=== PATIENT | female | born 1955 | race African-American/Black ===

== ENCOUNTER → 2017-02-26 | Day surgery (SDC) | payer MEDICARE, MEDICAID ==
[~2017-02-26] MED LIST: ASPI-1159 PO; ATOR-2 PO; CLOP75TA33 PO; DIPH25CA83 PO; DOCU-138 PO; FURO-151 PO; ISOS60TA4 PO; LEVVL SQ; LIDOCAINE HCL 1% 20ML VIAL (Pyxis) INJ ONE; LORA10TA7 PO; LOSA25TA12 PO; LUBI24CA5 PO; METF10002 PO; NITR0.4T49 SL; SODIUM BICARBONATE 4% (2.4MEQ) 5ML VIAL IV ONE; TRAM50TA3 PO; ZOLP10TA2 PO
== END | disposition home or self-care (01) ==
LOC: RAD 10:35
PROVIDERS: ATTEND Internal Medicine Endocrinology, Diabetes & Metabolism
DX: E04.1 Nontoxic single thyroid nodule (principal)
CPT/HCPCS: 10022; 76942; 88302; J3490; 38505